=== PATIENT | male | born 1955 | race Caucasian/White ===

== ENCOUNTER 2020-03-05 13:20 | Outpatient (RCR) | payer OTHER | END 2020-05-06 14:29 | disposition home or self-care (01) | LOC: WSOH 13:20 | DX: S86.112A Strain of other muscle(s) and tendon(s) of posterior muscle group at lower leg level, left leg, initial encounter (principal); Z90.89 Acquired absence of other organs; E78.00 Pure hypercholesterolemia, unspecified; T78.40XA Allergy, unspecified, initial encounter; Y99.0 Civilian activity done for income or pay ==